=== PATIENT | male | born 1995 | race Caucasian/White ===

== ENCOUNTER 2020-10-12 14:05 | Emergency (ER) | payer BC, OTHER ==
[~2020-10-12] VITALS: Ht 175 cm; Wt 80.0 kg
[2020-10-12] MEDS ORDERED: ESCI-2 (14:19)
[2020-10-12] MEDS ORDERED: ERGO1250 (14:19)
--- NOTE | 2020-10-12 14:26 | ED Psychosocial ---
General Chief Complaint: Psych/Social Disorder Stated Complaint: PSYCH EVAL- SUICIDAL IDEATIONS Nursing Triage Note: Patient reports being suicidal. Source: patient Exam Limitations: no limitations History of Present Illness Date Seen by Provider: Oct 12, 2020 Time Seen by Provider: 14:23 Initial Comments To ER in fatigues with reports of suicidal thoughts and depression. He was attending drill this weekend when he told one of his superiors about his depression and thoughts of harming himself by either hanging himself or crashing his car. He has a history of depression and is on Lexapro. He has spoken with his lot porter, called the [facility] save line last night, saw [facility] outpatient mental health last week. He reports persistent feelings of depression to the point that he wants to harm himself though he has not made any attempt to do so. He has never been hospitalized for mental health reasons. He does have a family history of depression as well. He feels that this particular episode of depression stems from "incidents at a pool constitution party". He currently lives in 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 Timing/Duration: constant, getting worse Severity: moderate Associated Symptoms: suicidal ideation Allergies and Home Medications Allergies Coded Allergies: No Known Drug Allergies (Unverified , 10/12/20) Patient Home Medication List Home Medication List Reviewed: Yes Review of Systems Constitutional: see HPI EENTM: see HPI Respiratory: no symptoms reported Cardiovascular: no symptoms reported Genitourinary: no symptoms reported Musculoskeletal: no symptoms reported Skin: no symptoms reported Psychiatric/Neurological: No Symptoms Reported Past Eisgvda-Fivijw-Yyksbm Hx Patient Social History Alcohol Use: Denies Use Recent Infectious Disease Expo: No Past Medical History Surgeries: No Respiratory: No Cardiac: No Neurological: No Genitourinary: No Gastrointestinal: No Musculoskeletal: No Endocrine: No HEENT: No Cancer: No Psychosocial: Yes Anxiety, Depression Integumentary: No Blood Disorders: No Physical Exam Vital Signs - First Documented 10/12/20 10/12/20 14:12 20:17 Temp 36.2 Pulse 100 Resp 18 B/P (MAP) 150/85 (106) Pulse Ox 98 O2 Delivery Room Air Capillary Refill : Less Than 3 Seconds Height, Weight, BMI Height: '" Weight: lbs. oz. kg; 26.00 BMI Method: General Appearance: WD/WN, no apparent distress HEENT: PERRL/EOMI, normal ENT inspection Respiratory: no respiratory distress, no accessory muscle use Gastrointestinal: normal bowel sounds, non tender, soft Neurologic/Psychiatric: alert, normal mood/affect, oriented x 3 Appearance/Memory: appropriate appearance, appropriate insight, neat Behavior/Eye Contact: cooperative, good eye contact, normal speech Thoughts/Hallucinations: normal thought pattern, no apparent hallucination Skin: normal color, warm/dry Oriented very pleasant. Cooperative. States that going inpatient for mental health would not be his first choice but he is agreeable to doing that if we felt it was necessary. I discussed with him that he has already sought more outpatient mental health help than most patients presenting here and it does not seem that that is helping much. As such I would recommend inpatient mental health help. He is agreeable with this plan. Progress/Results/Core Measures Results/Orders Lab Results Laboratory Tests Test 10/12/20 14:33 10/12/20 14:43 10/12/20 15:26 10/12/20 16:29 Range/Units White Blood Count 15.2 H 15.3 H 4.3-11.0 10^3/uL Red Blood Count 5.20 5.19 4.30-5.52 10^6/uL Hemoglobin 15.8 15.8 13.3-17.7 g/dL Hematocrit 47 47 40-54 % Mean Corpuscular Volume 90 90 80-99 fL Mean Corpuscular Hemoglobin 30 30 25-34 pg Mean Corpuscular Hemoglobin Concent 34 34 32-36 g/dL Red Cell Distribution Width 12.8 12.7 10.0-14.5 % Platelet Count 309 312 130-400 10^3/uL Mean Platelet Volume 10.2 9.7 9.0-12.2 fL Immature Granulocyte % (Auto) 1 0 % Neutrophils (%) (Auto) 84 H 84 H 42-75 % Lymphocytes (%) (Auto) 8 L 7 L 12-44 % Monocytes (%) (Auto) 8 8 0-12 % Eosinophils (%) (Auto) 0 0 0-10 % Basophils (%) (Auto) 0 0 0-10 % Neutrophils # (Auto) 12.8 H 12.9 H 1.8-7.8 10^3/uL Lymphocytes # (Auto) 1.1 1.1 1.0-4.0 10^3/uL Monocytes # (Auto) 1.1 H 1.2 H 0.0-1.0 10^3/uL Eosinophils # (Auto) 0.0 0.0 0.0-0.3 10^3/uL Basophils # (Auto) 0.0 0.0 0.0-0.1 10^3/uL Immature Granulocyte # (Auto) 0.1 0.1 0.0-0.1 10^3/uL Neutrophils % (Manual) 81 81 % Lymphocytes % (Manual) 13 13 % Monocytes % (Manual) 5 5 % Eosinophils % (Manual) 1 % Myelocytes % 1 1 % Percent Immature Platelet Fraction 2.8 0.0-7.6 % Stomatocytes SLIGHT SLIGHT Absolute Reticulocyte Count 89 24-90 10e9/uL Percent Reticulocyte Count 1.72 0.50-2.40 % Sodium Level 142 135-145 MMOL/L Potassium Level 3.5 L 3.6-5.0 MMOL/L Chloride Level 104 98-107 MMOL/L Carbon Dioxide Level 25 21-32 MMOL/L Anion Gap 13 5-14 MMOL/L Blood Urea Nitrogen 14 7-18 MG/DL Creatinine 1.11 0.60-1.30 MG/DL Estimat Glomerular Filtration Rate > 60 BUN/Creatinine Ratio 13 Glucose Level 96 70-105 MG/DL Calcium Level 9.9 8.5-10.1 MG/DL Corrected Calcium 8.5-10.1 MG/DL Total Bilirubin 1.0 0.1-1.0 MG/DL Aspartate Amino Transf (AST/SGOT) 16 5-34 U/L Alanine Aminotransferase (ALT/SGPT) 18 0-55 U/L Alkaline Phosphatase 47 40-136 U/L Total Protein 7.5 6.4-8.2 GM/DL Albumin 4.6 H 3.2-4.5 GM/DL Salicylates Level < 5.0 L 5.0-20.0 MG/DL Acetaminophen Level < 10 L 10-30 UG/ML Serum Alcohol < 10 <10 MG/DL Urine Color YELLOW Urine Clarity SL CLOUDY Urine pH 6.0 5-9 Urine Specific Trilla 1.025 H 1.016-1.022 Urine Protein 1+ H NEGATIVE Urine Glucose (UA) NEGATIVE NEGATIVE Urine Ketones NEGATIVE NEGATIVE Urine Nitrite NEGATIVE NEGATIVE Urine Bilirubin NEGATIVE NEGATIVE Urine Urobilinogen 0.2 < = 1.0 MG/DL Urine Leukocyte Esterase NEGATIVE NEGATIVE Urine RBC (Auto) NEGATIVE NEGATIVE Urine RBC 0-2 /HPF Urine WBC 0-2 /HPF Urine Squamous Epithelial Cells NONE /HPF Urine Crystals NONE /LPF Urine Bacteria TRACE /HPF Urine Casts PRESENT /LPF Urine Hyaline Casts 5-10 H /LPF Urine Granular Casts 5-10 H /LPF Urine Mucus SMALL H /LPF Urine Culture Indicated NO Urine Opiates Screen NEGATIVE NEGATIVE Urine Oxycodone Screen NEGATIVE NEGATIVE Urine Methadone Screen NEGATIVE NEGATIVE Urine Propoxyphene Screen NEGATIVE NEGATIVE Urine Barbiturates Screen NEGATIVE NEGATIVE Ur Tricyclic Antidepressants Screen NEGATIVE NEGATIVE Urine Phencyclidine Screen NEGATIVE NEGATIVE Urine Amphetamines Screen NEGATIVE NEGATIVE Urine Methamphetamines Screen NEGATIVE NEGATIVE Urine Benzodiazepines Screen NEGATIVE NEGATIVE Urine Cocaine Screen NEGATIVE NEGATIVE Urine Cannabinoids Screen NEGATIVE NEGATIVE SARS-CoV-2 RNA (RT-PCR) Not Detected Not Detecte My Orders Orders - [facility] Salicylate (10/12/20 14:19) Acetaminophen (10/12/20 14:19) Alcohol (10/12/20 14:19) Ua Culture If Indicated (10/12/20 14:19) Drug Screen Stat (Urine) (10/12/20 14:19) Cbc With Automated Diff (10/12/20 14:19) Comprehensive Metabolic Panel (10/12/20 14:19) Ekg Tracing (10/12/20 14:19) General/Regular (10/12/20 Lunch) Manual Differential (10/12/20 14:43) Smear For Path Review (10/12/20 15:23) Haptoglobin Screen (10/12/20 15:23) Covid 19 Inhouse Test (10/12/20 16:26) Vital Signs/I&O 10/12/20 10/12/20 14:12 20:17 Temp 36.2 36.4 Pulse 100 72 Resp 18 18 B/P (MAP) 150/85 (106) 101/65 (77) Pulse Ox 98 98 O2 Delivery Room Air Blood Pressure Mean: 106 Departure Communication (Admissions) EKG done at 1435 shows a normal sinus rhythm rate of [address] segment changes no ectopy I spoke with Dr. Fajardo from hematology here. Does not feel the leukocytosis and stomatocytes are of any significance that would preclude him from going inpatient psych. I have no concern for infectious process. 1624-I have called [facility] they do have a bed but they require a negative Covid test. I will get that ordered. 2048-Dr Blackwell From [facility] has accepted patient. Impression Primary Impression: Depression Qualified Codes: F32.2 - Major depressive disorder, single episode, severe without psychotic features Disposition: [facility] Condition: Stable Departure-Patient Inst. Referrals: NO,LOCAL PHYSICIAN (PCP/Family) Primary Care Physician [facility] Oct 12, 2020 14:26
[2020-10-12 14:49] LABS: BASOPHILS % (AUTO) 0 % (0-10); EOSINOPHILS % (AUTO) 0 % (0-10); HEMATOCRIT 47 % (40-54); HEMOGLOBIN 15.8 g/dL (13.3-17.7); LYMPHOCYTES # (AUTO) 1.1 10^3/uL (1.0-4.0); LYMPHOCYTES % (AUTO) 7 % (12-44); MEAN CORPUSCULAR HEMOGLOBIN 30 pg (25-34); MEAN CORPUSCULAR HGB CONC 34 g/dL (32-36); MEAN CORPUSCULAR VOLUME 90 fL (80-99); MEAN PLATELET VOLUME 9.7 fL (9.0-12.2); MONOCYTES # (AUTO) 1.2 10^3/uL (0.0-1.0); MONOCYTES % (AUTO) 8 % (0-12); NEUTROPHILS # (AUTO) 12.9 10^3/uL (1.8-7.8); NEUTROPHILS % (AUTO) 84 % (42-75); PLATELET COUNT 312 10^3/uL (130-400); WHITE BLOOD COUNT 15.3 10^3/uL (4.3-11.0)
[2020-10-12 15:01] LABS: ALBUMIN 4.6 GM/DL (3.2-4.5); CHLORIDE 104 MMOL/L (98-107); POTASSIUM 3.5 MMOL/L (3.6-5.0); SODIUM 142 MMOL/L (135-145)
[2020-10-12 15:03] LABS: CALCIUM 9.9 MG/DL (8.5-10.1)
[2020-10-12 15:04] LABS: GLUCOSE 96 MG/DL (70-105); TOTAL PROTEIN 7.5 GM/DL (6.4-8.2)
[2020-10-12 15:05] LABS: CARBON DIOXIDE 25 MMOL/L (21-32)
[2020-10-12 15:08] LABS: ALKALINE PHOSPHATASE 47 U/L (40-136); CREATININE SERUM 1.11 MG/DL (0.60-1.30); GFR ESTIMATED > 60
[2020-10-12 15:09] LABS: BUN/CREATININE RATIO 13
[2020-10-12 15:10] LABS: SALICYLATE < 5.0 MG/DL (5.0-20.0)
[2020-10-12 15:11] LABS: ALANINE AMINOTRANSFERASE 18 U/L (0-55)
[2020-10-12 15:13] LABS: LYMPHOCYTES % (MANUAL) 13 %; MONOCYTES % (MANUAL) 5 %; MYELOCYTES % 1 %; NEUTROPHILS % (MANUAL) 81 %; STOMATOCYTES SLIGHT
[2020-10-12 15:21] LABS: ACETAMINOPHEN < 10 UG/ML (10-30)
[2020-10-12 15:39] LABS: BILIRUBIN,URINE NEGATIVE (NEGATIVE); CLARITY,URINE SL CLOUDY; COLOR,URINE YELLOW; GLUCOSE, URINE (UA) NEGATIVE (NEGATIVE); KETONES,URINE NEGATIVE (NEGATIVE); LEUKOCYTE ESTERASE ,URINE NEGATIVE (NEGATIVE); NITRITE,URINE NEGATIVE (NEGATIVE); PROTEIN,URINE 1+ (NEGATIVE)
[2020-10-12 15:44] LABS: ABSOLUTE RETIC # 89 10e9/uL (24-90); BASOPHILS % (AUTO) 0 % (0-10); EOSINOPHILS % (AUTO) 0 % (0-10); HEMATOCRIT 47 % (40-54); HEMOGLOBIN 15.8 g/dL (13.3-17.7); LYMPHOCYTES # (AUTO) 1.1 10^3/uL (1.0-4.0); LYMPHOCYTES % (AUTO) 8 % (12-44); MEAN CORPUSCULAR HEMOGLOBIN 30 pg (25-34); MEAN CORPUSCULAR HGB CONC 34 g/dL (32-36); MEAN CORPUSCULAR VOLUME 90 fL (80-99); MEAN PLATELET VOLUME 10.2 fL (9.0-12.2); MONOCYTES # (AUTO) 1.1 10^3/uL (0.0-1.0); MONOCYTES % (AUTO) 8 % (0-12); NEUTROPHILS # (AUTO) 12.8 10^3/uL (1.8-7.8); NEUTROPHILS % (AUTO) 84 % (42-75); PLATELET COUNT 309 10^3/uL (130-400); RETICULOCYTE % 1.72 % (0.50-2.40); WHITE BLOOD COUNT 15.2 10^3/uL (4.3-11.0)
[2020-10-12 15:54] LABS: BACTERIA,URINE TRACE /HPF; RBC,URINE 0-2 /HPF; WBC,URINE 0-2 /HPF
[2020-10-12 15:57] LABS: EOSINOPHILS % (MANUAL) 1 %; LYMPHOCYTES % (MANUAL) 13 %; MONOCYTES % (MANUAL) 5 %; NEUTROPHILS % (MANUAL) 81 %
[2020-10-12 15:58] LABS: STOMATOCYTES SLIGHT
[2020-10-12 16:04] LABS: AMPHETAMINE SCREEN, URINE NEGATIVE (NEGATIVE); BARBITURATE SCREEN URINE NEGATIVE (NEGATIVE); BENZODIAZEPINES SCREEN URINE NEGATIVE (NEGATIVE); CANNABINOID SCREEN, URINE NEGATIVE (NEGATIVE); COCAINE SCREEN URINE NEGATIVE (NEGATIVE); METHADONE STAT NEGATIVE (NEGATIVE); METHAMPHETAMINE SCREEN URINE S NEGATIVE (NEGATIVE); OPIATE SCREEN URINE NEGATIVE (NEGATIVE); OXYCODONE STAT NEGATIVE (NEGATIVE); PROPOXYPHENE STAT NEGATIVE (NEGATIVE); TRICYCLIC ANTIDEPRESSANTS SCRE NEGATIVE (NEGATIVE)
[2020-10-12 21:20] VITALS: BP 100/52
== END 2020-10-12 21:21 | disposition short-term general hospital (02) ==
LOC: ER 14:08
DX: F32.9 Major depressive disorder, single episode, unspecified (principal); Z20.822 Contact with and (suspected) exposure to COVID-19
CPT/HCPCS: 80053; 80306; 81000; 83010; 85007; 85027; 85045; 85055; 87636; G0480 ×3; 36415; 80320; 80329; 93005

== ENCOUNTER → 2021-08-04 | Outpatient (CLI) | payer BC ==
[~2021-08-04] MED LIST: ERGO1250; ESCI-2
--- NOTE | 2021-08-04 07:49 | Diagnostic Imaging Report ---
EXAMINATION: US Abdomen limited. TECHNIQUE: Multiple real-time grayscale images were obtained over the right upper quadrant in various projections. HISTORY: EPIGASTRIC PAIN COMPARISON: None available. FINDINGS: Pancreas: The visualized portions of the pancreas are normal. Liver: The liver is normal in echogenicity and contour. No focal lesions are seen. The portal vein is patent with hepatopetal flow. Gallbladder and biliary tree: Gallbladder is normal without wall thickening, pericholecystic fluid, or sonographic Pate sign. There is no biliary ductal dilation. The common duct measures 0.4 cm. Right kidney: The right kidney is normal without hydronephrosis. Aorta and IVC: The visualized aorta and inferior vena cava are normal. Fluid: No ascites is seen. IMPRESSION: 1. Unremarkable right upper quadrant ultrasound. Dictated by: Dictated on workstation # [id number]
== END ==
LOC: RAD 07:15
PROVIDERS: ATTEND Surgery
DX: R10.13 Epigastric pain (principal)
CPT/HCPCS: 76705

== ENCOUNTER → 2021-08-08 | Outpatient (CLI) | payer BC ==
[~2021-08-08] MED LIST changes: +CATHETER FLUSH 10 ML SYR IVP PRN
--- NOTE | 2021-08-08 13:39 | Diagnostic Imaging Report ---
INDICATION: Epigastric pain. COMPARISON: Gallbladder ultrasound from 08/04/2021. TECHNIQUE: Anterior scintigraphic imaging of the abdomen was performed after the intravenous administration of 4.83 mCi Tc-99m Choletec. FINDINGS: The upper abdomen was imaged for 60 minutes with the gamma camera. There is prompt homogeneous uptake of radiopharmaceutical by the liver. Radiotracer activity is seen in the common bile duct by 10 minutes and small bowel activity by 15 minutes. Gallbladder activity is seen at 50 minutes. After 60 minutes, the patient received 8 oz of Ensure by mouth. After 60 minutes, the gallbladder ejection fraction was calculated to be 13% which is low. IMPRESSION: 1. Patent common and cystic bile ducts. 2. Delayed filling of the gallbladder with diminished ejection fraction or features that can be seen with chronic cholecystitis. Dictated by: Dictated on workstation # [id number]
== END ==
LOC: CARD 09:48
PROVIDERS: ATTEND Surgery
DX: R10.13 Epigastric pain (principal)
CPT/HCPCS: 78227; A9537

== ENCOUNTER → 2021-08-21 | Outpatient (CLI) | payer BC ==
[~2021-08-21] VITALS: Ht 175 cm; Wt 73.0 kg
[~2021-08-21] MED LIST changes: -CATHETER FLUSH 10 ML SYR IVP PRN; +ESCI10TA PO
== END | disposition home or self-care (01) ==
LOC: PREOP 05:31
PROVIDERS: ATTEND Surgery
DX: Z01.818 Encounter for other preprocedural examination (principal)

== ENCOUNTER 2021-08-28 05:54 | Day surgery (SDC) | payer BC ==
[2021-08-28] VITALS (11 sets, daily range): BP systolic 120–142; BP diastolic 72–95
[~2021-08-28] VITALS: Ht 175.3 cm; Wt 73.0 kg
[2021-08-28] MEDS: LACTATED RINGERS 1,000 ML IV PRN ×3 (06:43→10:10)
[2021-08-28] MEDS ORDERED: ceFAZolin 2 GM IV Premixed 50 ML IV ONE (06:45)
[2021-08-28] MEDS ORDERED: LIDOCAINE/EPI 1%-1:200,000 (XYLOCAINE) 30 ML VIAL ONE (07:33)
[2021-08-28] MEDS ORDERED: MIDAZOLAM 2 MG/2 ML (VERSED) VIAL ONE (07:47)
[2021-08-28] MEDS ORDERED: fentaNYL INJ 100 MCG/2 ML AMP ONE (07:47)
--- NOTE | 2021-08-28 08:04 | Progress Note-Pre Operative ---
Pre-Operative Progress Note H&P Reviewed The H&P was reviewed, patient examined and no changes noted. Date Seen by Provider: August 28, 2021 Time Seen by Provider: 08:03 Date H&P Reviewed: August 28, 2021 Time H&P Reviewed: 08:03 Pre-Operative Diagnosis: Biliary dyskinesia NADINE SANTO DO August 28, 2021 08:04
[2021-08-28] MEDS ORDERED: proPOfol 200 MG/20 ML (DIPRIVAN) VIAL IV ONE (09:38)
[2021-08-28] MEDS ORDERED: LIDOCAINE PF 2% 5 ML (XYLOCAINE) VIAL ONE (09:38)
[2021-08-28] MEDS ORDERED: NEOSTIGMINE 3 MG/3 ML VIAL ONE (09:38)
[2021-08-28] MEDS ORDERED: ONDANSETRON 4 MG/2 ML (SDV) Z0FRAN ONE (09:38)
[2021-08-28] MEDS ORDERED: GLYCOPYRROLATE 0.2 MG/ML (ROBINUL) 2 ML VIAL ONE (09:38)
[2021-08-28] MEDS ORDERED: ROCURONIUM 50 MG/5 ML (ZEMURON) VIAL IV ONE (09:38)
[2021-08-28] MEDS ORDERED: SEVOFLURANE (ULTANE) 15 ML INHAL SOLN ONE (09:38)
--- NOTE | 2021-08-28 09:41 | Progress Note-Post Operative ---
Post-Operative Progess Note Surgeon (s)/Paint Technician (s) Surgeon NADINE SANTO DO Paint Technician: Vivek Cowart to assist in retraction dissection and closure. Pre-Operative Diagnosis Biliary dyskinesia Post-Operative Diagnosis same Procedure & Operative Findings Date of Procedure 08/28/21 Procedure Performed/Findings PROCEDURE: Laparoscopic cholecystectomy with intraoperative cholangiogram. COMPLICATIONS: None. PROCEDURE: The patient was taken to the operating suite and was prepped and draped in sterile fashion. A surgical pause was performed. Just superior to the umbilicus, a 12 mm incision was made. Dissection was taken down to the fascia, which was then scored and grasped with a Kirti and the abdomen was then entered. A 0 Vicryl suture was placed in a [id number] fashion and a Linton trocar was placed and secured. Pneumoperitoneum was achieved. A 5mm trochar place in the subxyphoid and 2 in the right upper quadrant. The gallbladder was then grasped and elevated. Adhesions to the gallbladder were taken down. The cystic duct, and cystic artery were then dissected out. Clip was placed on the distal portion of the cystic duct which was then partially transected. An arrow catheter was inserted into the duct. The cholangiogram was then performed. No filing defects and contrast made its way into the duodenum. Catheter removed. Clips were placed on proximal portion of the cystic duct and then the duct was then transected. Clips were placed along the proximal and distal portion of the cystic artery which was then transected. Hook cautery was used to dissect the gallbladder from the gallbladder fossa achieving hemostasis. The gallbladder was placed in an Endobag and removed through the 12 mm trocar site. The abdomen was then reinspected. Copious amounts of irrigation were used to irrigate the abdomen and there were no signs of active bleeding. Hemostasis had been achieved. The 12 mm fascial defect was then closed with 0 Vicryl suture that had been placed in a [id number] fashion. The abdomen was then desufflated, the trocars were removed. The abdomen was then washed and dried. The skin was then closed using 4-0 Monocryl in a subcuticular fashion. The abdomen was washed and dried and Skin Affix was place over incisions. Patient tolerated the procedure well without any complications and was taken to the recovery room in stable condition. Anesthesia Type general Estimated Blood Loss Estimated blood loss (mL): minimal Specimens/Packing Specimens Removed gallbladder NADINE SANTO DO August 28, 2021 09:41
[2021-08-28] MEDS ORDERED: DOCU-143 PO (09:43)
[2021-08-28] MEDS ORDERED: ACHD5005 PO (09:43)
--- NOTE | 2021-08-28 09:44 | Diagnostic Imaging Report ---
Indication: Cholecystectomy Operative cholangiogram performed in the routine fashion. 23 images were obtained, 8 seconds of fluoroscopy time was used in surgery. Contrast injection is made through the cystic duct stump. The biliary tree is nondilated. There are no filling defects in the common duct. Contrast passes to the duodenum without obstruction. IMPRESSION: Unremarkable operative cholangiogram. Dictated by: Dictated on workstation # [id number]
--- NOTE | 2021-08-28 09:44 | Discharge Inst-Simple/Standard ---
Discharge Inst-Standard Discharge Medications New, Converted or Re-Newed RX: Transmitted to Pharmacy Patient Instructions/Follow Up Plan of Care/Instructions/FU: 2 weeks em Activity as Tolerated: No Discharge Diet: Regular Diet Other Inst to Patient Follow up Appt: Make appointment for 2 weeks. Instructions: No lifting greater than 10 pounds. No strenuous activity. May shower in 24 hours, no tub bath or soaking. Use incentive spirometer at home as directed. No Smoking Skin/Wound Care: You have special glue over incision, it will fall off on it's own. Symptoms to Report: Appetite Changes, Extremity Discoloration, Numbness/Tingling, Swelling Increased, Bleeding Excessive, Eyesight Changes, Pain Increased, Urine Color Change, Constipation(Persistent), Fever over 101 degree F, Pain/Pressure in chest, Urinating Difficulty, Cough Up/Vomit Blood, Heart Beat Irreg/Pounding, Pain/Pressure in jaw, Vaginal Bleeding Increase, Cramps in feet or legs, Lightheadedness, Pain/Pressure in shoulder, Diarrhea(Persistent), Memory Changes Suddenly, Questions/Concerns, Weight gain consecutive days, Dizziness/Fainting, Nausea/Vomiting, Shortness of Breath, Weight gain over 2 pounds. If eyes or skin turn yellow notify physician. If questions or concerns contact your physician Or seek help at emergency department. NADINE SANTO DO August 28, 2021 09:44
--- NOTE | 2021-08-28 09:49 | Anesthesia-General Post-Op ---
General Patient Condition Mental Status/LOC: Same as Preop Cardiovascular: Satisfactory Nausea/Vomiting: Absent Respiratory: Satisfactory Pain: Controlled Complications: Absent Post Op Complications Complications None Follow Up Care/Instructions Patient Instructions None needed. Anesthesia/Patient Condition Patient Condition Patient is doing well, no complaints, stable vital signs, no apparent adverse anesthesia problems. No complications reported per nursing. YAIR SEALS DO August 28, 2021 09:49
[2021-08-28] MEDS ORDERED: HYDROmorphone 2 MG/ML VIAL (DILAUDID) IV ONE (10:00)
[2021-08-28] MEDS ORDERED: ONDANSETRON 4 MG/2 ML (SDV) Z0FRAN IVP PRN (10:00)
[2021-08-28] MEDS ORDERED: morphine INJ 10 MG/ML 1ML (SYR OR VIAL) IVP ONE (10:00)
[2021-08-28] MEDS ORDERED: HYDROcodone/APAP 5 MG/325 MG (LORTAB) TAB ONE (10:40)
[2021-08-28] MEDS ORDERED: HYDROcodone/APAP 5 MG/325 MG (LORTAB) TAB PO ONE (11:00)
== END 2021-08-28 12:00 ==
LOC: SDC 05:54
PROVIDERS: ATTEND Surgery
DX: K81.1 Chronic cholecystitis (principal); K82.8 Other specified diseases of gallbladder
CPT/HCPCS: 76000; 87081; 88304; 94664